=== PATIENT | female | born 1945 | race Caucasian/White ===

== ENCOUNTER 2024-04-12 18:18 | Emergency (ER) | payer BC, MEDICARE ==
[~2024-04-12] VITALS: Ht 167.6 cm; Wt 78.9 kg
[~2024-04-12 18:18] MED LIST: AMLODIPINE BESYL5 MG PO; ASPIRIN325 MG PO; B12 PO; ETODOLAC400 MG PO; FLUTICASONE PRO16 GM PO; FOLIC ACID5 MG/ML PO; GABAPENTIN100 MG PO; HUMALOG100 UNIT/1 SQ; HYDRALAZINE HCL50 MG PO; HYDROCHLOROTHIA25 MG; IRON PO; LANTUS100 UNITS/ SC; LEVOTHYROXINE100 MCG PO; LISINOPRIL10 MG PO; LOVASTATIN20 MG PO; METFORMIN HCL500 MG PO; METHOTREXATE2.5 MG PO; METOPROLO PO; METOPROLOL TART50 MG PO; MOBIC7.5 MG PO; TOUJEO SQ; [UNRECOGNIZED DRUG - CODE] PO
[2024-04-12 18:27] VITALS: PULSE 72; RESP 20; TEMP 98.9
[2024-04-12] MEDS: TRAMADOL HCL 50 MG TAB PO ONE (19:28)
[2024-04-12] MEDS: ONDANSETRON HCL 4 MG ORAL DISINTEGRATING TAB PO ONE (19:28)
[2024-04-12] MEDS: TETANUS/DIPHTHERIA TOX ADULT 0.5 ML SYR IM ONE (19:29)
[2024-04-12] MEDS: BUPIVACAINE HCL 0.25% 10ML MPF VIAL INJ ONE (20:01)
[2024-04-12] MEDS ORDERED: ULTRAM 50MG50 MG PO (21:10)
[2024-04-12 21:20] VITALS: BP 160/48; PULSE 74; RESP 16; TEMP 98.5; O2SAT 97
== END 2024-04-12 21:23 | disposition home or self-care (01) ==
LOC: ER 18:25
DX: S61.210A Laceration without foreign body of right index finger without damage to nail, initial encounter (principal); S50.01XA Contusion of right elbow, initial encounter; S80.01XA Contusion of right knee, initial encounter; W18.2XXA Fall in (into) shower or empty bathtub, initial encounter; Y93.E1 Activity, personal bathing and showering; Y92.89 Other specified places as the place of occurrence of the external cause; I10 Essential (primary) hypertension; E11.9 Type 2 diabetes mellitus without complications; E78.5 Hyperlipidemia, unspecified; E03.9 Hypothyroidism, unspecified; Z96.651 Presence of right artificial knee joint
CPT/HCPCS: 12001; 73080; 73120; 73502; 73552; 73562; 90471; 90714; 99284; Q0162